=== PATIENT | male | born 1965 | race Caucasian/White ===

== ENCOUNTER 2017-01-01 22:51 | Emergency (ER) | payer SELFPAY ==
--- NOTE | 2017-01-02 00:01 | DIAGNOSTIC IMAGING REPORT ---
PROCEDURE: CT CERVICAL SPINE W/O CONTRAST INDICATION: TRAUMA/INJURY TECHNIQUE: Noncontrast axial images with sagittal and coronal reformations. COMPARISON: None. FINDINGS: There are mild to moderate degenerative changes cervical spine. Osseous structures and disc spaces are otherwise normal. There is a moderate central disc herniation at C5-6 level with 30-40% narrowing of the spinal canal. No evidence of an acute process or fracture. Alignment is normal. IMPRESSION: 1. Moderate degenerative changes. 2. Moderate central disc herniation at C5-6 with 30-40% narrowing of the spinal canal (acute versus chronic). 3. Otherwise negative CT cervical spine. No evidence of fracture. 4. Findings discussed with Dr. Diego Felipe. All CT scans at this facility use dose modulation, iterative reconstruction, and/or weight-based dosing when appropriate to reduce radiation dose to as low as reasonably achievable.
--- NOTE | 2017-01-02 00:01 | DIAGNOSTIC IMAGING REPORT ---
PROCEDURE: CT HEAD WITHOUT CONTRAST INDICATION: TRAUMA/INJURY TECHNIQUE: Noncontrast axial images with sagittal and coronal reformations. COMPARISON: Compared to a head CT on 10/05/2013. FINDINGS: Allowing for mild motion, brain and ventricles are normal. No evidence of an acute process or hemorrhage. Sinuses and mastoids are normal. IMPRESSION: 1. Allowing for motion, negative head CT. 2. Findings discussed with Dr. Diego Felipe at [address] scans at this facility use dose modulation, iterative reconstruction, and/or weight-based dosing when appropriate to reduce radiation dose to as low as reasonably achievable.
--- NOTE | 2017-01-02 04:01 | ED NURSING NOTES ---
Clinical Report - Nurses [place] [address] [place] [address] 01/01/2017 22:52 [id number] Triage time 22:56 Leonel 2016. Acuity: LEVEL 3. Chief Complaint: INJURY TO HEAD. Alert. No acute distress. BARON COMA SCORE: Baron Coma Scale: 15- eyes open spontaneously (4); best verbal response- oriented x 4 (5); best motor response- obeys commands (6). --23:01 Krystin Mcintyre R.N. 22:56 01/01/17. BP: 140/97. HR: 70. RR: 16. O2 saturation: 100%. Temp: 97.7 F. Pain level now: 03/05. --23:01 Krystin Mcintyre R.N. Weight: 90.7 kg stated. Height/Length: 67 inches Per Patient. BMI: 31.3. --22:59 Krystin Mcintyre R.N. Medications Aspirin Oral (Tablet 325 mg) 1 tablet, daily. --22:57 Krystin Mcintyre R.N. Allergies None. --22:58 Krystin Mcintyre R.N. History Arrived by EMS. Historian: patient. This occurred yesterday. Mechanism of injury: (flower pot fell on top of head). He has had a headache and neck pain. ( low back pain). Treatment SHIP LINER: None. PAST MEDICAL HX: Tetanus status: up-to-date. Immunizations: up-to-date. SOCIAL HX: Current every day heavy tobacco smoker (cigarette)- less than 1 pack per day. Regular alcohol use; consumes three beers a day. No drug use. No infectious disease exposure. SELF HARM ASSESSMENT: A self harm assessment was performed. The patient answered "no" to the question "Do you have thoughts of harming or killing yourself?". FALL RISK ASSESSMENT: Fall risk assessment completed. No fall risk identified. NUTRITIONAL RISK ASSESSMENT: The nutritional risk assessment revealed no deficiencies. FUNCTIONAL ASSESSMENT: Functional assessment: no impairments noted. LEARNING NEEDS ASSESSMENT: The learning needs assessment revealed no barriers. ABUSE ASSESSMENT: Abuse assessment: The patient was asked "Do you feel safe in your home?". SKIN INTEGRITY ASSESSMENT: Skin integrity risk assessment completed. No skin integrity risk identified. --23: Krystin Mcintyre R.N. PROBLEMS: Hypomagnesemia. Substance Abuse. Alcohol Intoxication. Hyperlipidemia. Chest Pain. Hypertension. Hypercholesterolemia. --: Krystin Mcintyre R.N. ADDITIONAL SURGERIES: Carpal Tunnel Surgery. Transposition of R ulnar nerve. --:58 Krystin Mcintyre R.N. Interventions ID band on patient. To room. --23: Krystin Mcintyre R.N. PHYSICAL ASSESSMENT GENERAL / NEURO / PSYCH: Alert. Oriented X 4. Appears in no acute distress. HEENT: Vertex: tenderness. Pupils equal, round and reactive to light. Voice within normal limits. RESPIRATORY: Respirations not labored. BACK: Vertebral point tenderness over the thoracic spine. SKIN: Skin is warm and dry. --23:03 Krystin Mcintyre R.N. NURSING PROGRESS NOTES Patient gowned. Head of bed elevated. Patient identifiers checked. Call light placed in reach. Side rails up x 1. Bed placed in lowest position. Brakes of bed on. --23:03 Krystin Mcintyre R.N. Point of care testing: performed by nurse. Glucose: 94. BREATHALYZER: Breathalyzer (.025). --23: Krystin Mcintyre R.N. The patient is resting quietly. RESPIRATORY: No respiratory distress. SKIN: Skin is warm and dry. --23:56 Pillo, Dena 23:55 01/01/17. BP: 139/70. HR: 68. RR: 20. O2 saturation: 98% on room air. Pain level now: 03/05. --23:56 Pillo, Dena The patient is sleeping. --00:49 Pillo, Dena 00:48 01/02/17. BP: 129/60. HR: 88. RR: 20. O2 saturation: 96% on room air. --00:49 Pillo, Dena The patient is sleeping. --02:21 Dena Ferro 01:55 01/02/17. BP: 145/89. HR: 92. RR: 20. O2 saturation: 96% on room air. --02:21 Dena Ferro Patient ID band checked for patient name and birthdate: patient confirmed. Instructions provided to collect clean catch urine and patient verbalized understanding. Clean catch urine collected with return of yellow-colored clear urine; sample sent to lab for urinalysis and drug screen. Specimen labeled in the presence of the patient. --02:50 Dena Ferro 03:22 01/02/17. BP: 140/80. HR: 83. RR: 20. O2 saturation: 95% on room air. --03:25 Dena Ferro ( Provider has cleared patient for discharge, RN attempting to arrange ride for the patient.). --04:30 Dena Ferro late entry -04:25. ( CALLED BROTHER AND LEFT MESSAGE THAT PT IS READY TO GO HOME AND NEEDS SOMEONE TO COME PICK HIM UP). --04:34 Carmela Marcum ( CALLED FRIEND: RADHA, NO ANSWER COULD NOT LEAVE MESSAGE.). --04:35 Carmela Marcum ( CALLED OTHER NUMBER FOR RADHA AND LEFT A MESSAGE). --04:37 Carmela Marcum ( TRIED TO CALL RADHA AGAIN PHONE WENT STRAIGHT TO VOICEMAIL.). --05:09 Carmela Marcum The patient is resting quietly. RESPIRATORY: No respiratory distress. SKIN: Skin is warm and dry. --05:14 Dena Ferro 05:10 01/02/17. BP: 142/60. HR: 85. RR: 18. O2 saturation: 95%. --05:14 Dena Ferro 06:27 01/02/17. The patient is sleeping. ( Unable to obtain safe ride for patient. Patient family called on multiple attempts.). --06:27 Dena Ferro 06:27 01/02/17. BP: 130/68. HR: 75. RR: 20. O2 saturation: 97% on room air. --06:27 Dena Ferro Care transferred and report received (Dena, RN). --07:18 Kishore Amato R.N. DISPOSITION / DISCHARGE Departure time: 0750. Condition at departure: improved and stable. ( Passed road test without problems.). No learning barriers present. Discharge instructions provided and reviewed with the patient. Patient verbalized understanding. Written instructions provided in Hong Konger. The patient was discharged by the physician. He was discharged home. He left the Emergency Department ambulatory and via bus. --07:51 Kishore Amato R.N. 07:48 01/02/17. BP: 140/87. HR: 67. RR: 16. O2 saturation: 96% on room air. Temp: 98.1 F. Pain level now: 0/10. --07:51 Kishore Amato R.N. Locked/Released at 01/02/2017 17:48 by Kishore Amato R.N.
--- NOTE | 2017-01-02 04:01 | ED CLINICAL REPORT ---
Clinical Report - Physicians/Mid Levels [facility] [address] [place] [address] 01/01/2017 22:52 Patient: COLLINS MORENO JR Time Seen: 22:52. Arrived- By ambulance. Historian- patient and EMS personnel. Evaluation limited No family will answer phone, no family present, Patient has decreased alertness. HISTORY OF PRESENT ILLNESS Chief Complaint: DECREASED MENTAL STATUS, CHANGED MENTAL STATUS and CONFUSION. The patient is described as having decreased responsiveness. (Family (Not present in ED) is said to be concerned about decreased mental status.There was a history of head trauma yesterday. He dropped a flat of plants onto his head from an unknown height. He is not on anti-coagulants.). This started today. The patient has had alcohol consumption recently (unknown from history). History of recent drug use unknown from history. No weakness or recent fall. No difficulty walking. Usually is alert and oriented X3 and usually has normal mobility. Similar symptoms previously: (Unknown). Recent medical care: The patient was seen recently by a health care provider (Unknown). REVIEW OF SYSTEMS The patient has had a headache. No chest pain or abdominal pain. Neck and back pain. PAST HISTORY ( PCP: None Ops: Elbow and hand surgery. Hosp: Abdominal pain Hypertension. SURGERIES: Anterior intermuscular transposition, right ulnar nerve for cubital tunnel syndrome - done by Dr. Oliver [id number] Carpal tunnel PCP: Zay ([facility]). Hyperlipidemia. Medications: None.. Allergies: No Known Drug Allergy..). ADDITIONAL NOTES The nursing notes have been reviewed. PHYSICAL EXAM Vital Signs: 01/02/2017 07:48 BP: 140/87. HR: 67. RR: 16. O2 saturation: 96%. Temp: 98.1 F. Pain level now: 0/10. 01/02/2017 06:27 BP: 130/68. HR: 75. RR: 20. O2 saturation: 97%. 01/02/2017 05:10 BP: 142/60. HR: 85. RR: 18. O2 saturation: 95%. 01/02/2017 03:22 BP: 140/80. HR: 83. RR: 20. O2 saturation: 95%. 01/02/2017 01:55 BP: 145/89. HR: 92. RR: 20. O2 saturation: 96%. 01/02/2017 00:48 BP: 129/60. HR: 88. RR: 20. O2 saturation: 96%. 01/01/2017 23:55 BP: 139/70. HR: 68. RR: 20. O2 saturation: 98%. Pain level now: 03/05. 01/01/2017 22:56 BP: 140/97. HR: 70. RR: 16. O2 saturation: 100%. Temp: 97.7 F. Pain level now: 03/05. Appearance: Alert. No acute distress. Head: Head atraumatic. Eyes: Nystagmus (difficult to assess). ENT: Normal ENT inspection. Moist mucous membranes. Neck: Normal inspection. (Mild cervical tenderness). CVS: Normal heart rate and rhythm. Respiratory: No respiratory distress. Abdomen: Soft and nontender. Skin: Skin warm. Normal skin color. Extremities: Extremities exhibit normal ROM. No lower extremity edema. Neuro: Oriented X 3. Altered mental status. (wakens to mild vocal stimuli). Mood/affect normal. Speech normal. No cranial nerve deficit. No motor deficit. No sensory deficit. Abnormal gait (slightly unsteady initially). LABS, X-RAYS, AND EKG CT C-Spine: (PROCEDURE: CT CERVICAL SPINE W/O CONTRAST INDICATION: TRAUMA/INJURY TECHNIQUE: Noncontrast axial images with sagittal and coronal reformations. COMPARISON: None. FINDINGS: There are mild to moderate degenerative changes cervical spine. Osseous structures and disc spaces are otherwise normal. There is a moderate central disc herniation at C5-6 level with 30-40% narrowing of the spinal canal. No evidence of an acute process or fracture. Alignment is normal. IMPRESSION: 1. Moderate degenerative changes. 2. Moderate central disc herniation at C5-6 with 30-40% narrowing of the spinal canal (acute versus chronic). 3. Otherwise negative CT cervical spine. No evidence of fracture. 4. Findings discussed with Dr. Diego Felipe. All CT scans at this facility use dose modulation, iterative reconstruction, and/or weight-based dosing when appropriate to reduce radiation dose to as low as reasonably achievable. Electronically Final signed by:Dani King MD 01/01/2017 11:56:18 PM). CT Head: (PROCEDURE: CT HEAD WITHOUT CONTRAST INDICATION: TRAUMA/INJURY TECHNIQUE: Noncontrast axial images with sagittal and coronal reformations. COMPARISON: Compared to a head CT on 10/05/2013. FINDINGS: Allowing for mild motion, brain and ventricles are normal. No evidence of an acute process or hemorrhage. Sinuses and mastoids are normal. IMPRESSION: 1. Allowing for motion, negative head CT. 2. Findings discussed with Dr. Diego Felipe at [address] scans at this facility use dose modulation, iterative reconstruction, and/or weight-based dosing when appropriate to reduce radiation dose to as low as reasonably achievable. Electronically Final signed by:Dani King MD 01/01/2017 11:57:03 PM). Laboratory Tests: Ethyl Alcohol: (MELINDA: 01/02/2017 00:00) ( [facility] 01/02/2017 03:06) Final results Test Result Flag Units (Reference) ETHYL ALCOHOL 24 H mg/dL (3-10) Urine Drug Screen: (MELINDA: 01/02/2017 02:50) ( [facility] 01/02/2017 03:11) Final results Test Result Flag Units (Reference) AMPHETAMINE/METHAMPHETAMINE POSITIVE H (NEGATIVE) BARBITURATE NEGATIVE (NEGATIVE) BENZODIAZEPINE POSITIVE H (NEGATIVE) CANNABINOID NEGATIVE (NEGATIVE) COCAINE NEGATIVE (NEGATIVE) ECSTASY NEGATIVE (NEGATIVE) METHADONE NEGATIVE (NEGATIVE) OPIATE POSITIVE H (NEGATIVE) The urine drug screen is a qualitative screening test fordrug overdose and abuse. All screen results should beconsidered as presumptive.Drugs screened for are as follows:BenzodiazepinesCocaineAmphetamines/MetamphetaminesTHC (Tetrahydrocannabinol)OpiatesBarbituratesEcstasyMethadonePositive results are unconfirmed. For confirmation, notifythe lab for the specimen to be sent to the reference lab.All confirmations must be performed by a differentmethodology.The ingestion of natural herbal and plant productscontaining Ephedra/Ephedra metabolites can produce in urineone or more substances capable of cross reacting withamphetamine/methamphetamine immunoassays. These testsprovide a preliminary result only. A more specificalternative chemical method must be used to obtain aconfirmed analytical result. CBC w Diff: (MELINDA: 01/01/2017 23:33) ( [facility] 01/02/2017 00:11) Final results Test Result Flag Units (Reference) WHITE BLOOD COUNT 5.0 K/uL (4.5-11.5) RED BLOOD COUNT 4.88 M/uL (4.50-5.90) HEMOGLOBIN 15.3 gm/dL (13.5-17.5) HEMATOCRIT 44.9 % (41.0-53.0) MEAN CELL VOLUME 92 fL (80-100) MEAN CORPUSCULAR HGB 31 pg (26-34) MEAN CORPUSCULAR HGB CONC 34 g/dL (31-37) RED CELL DISTRIBUTION WIDTH 14.0 % (11.6-14.8) PLATELET COUNT 127 L K/uL (150-400) NEUTROPHIL % 55.3 % (50-75) LYMPH % 29.5 % (25-40) MONO % 10.7 % (3-14) EOSINOPHIL % 3.9 % (0-4) BASOPHIL % 0.6 % (0-2) CMP: (MELINDA: 01/01/2017 23:33) ( MsgRcvd 01/02/2017 00:06) Final results Test Result Flag Units (Reference) GLUCOSE 101 mg/dL (70-110) BUN 8 mg/dL (7-18) CREATININE 1.0 mg/dL (0.6-1.3) Estimated GFR >60 mL/min Estimated GFR- >60 mL/min Note: Persistent reduction over 3 months in eGFR<60 mL/min/1.73 m2 defines CKD. Patients with eGFR values>=60 mL/min/1.73 m2 may also have CKD if evidence ofpersistent proteinuria. Additional information may be foundat www.kidney.org. SODIUM 143 mmol/L (136-145) POTASSIUM 3.3 L mmol/L (3.5-5.1) CHLORIDE 107 mmol/L (98-107) CARBON DIOXIDE 25 mmol/L (21-32) CALCIUM 9.2 mg/dL (8.5-10.1) TOTAL PROTEIN 7.5 g/dL (6.4-8.2) ALBUMIN 3.2 L g/dL (3.3-5.0) BILIRUBIN, TOTAL 0.4 mg/dL (0.0-1.0) ALKALINE PHOSPHATASE 62 U/L (46-116) AST (SGOT) 45 H U/L (15-37) ALT (SGPT) 53 U/L (12-78) . PROGRESS AND PROCEDURES Course of Care: 03:29 01/02/17. The patient's urine toxicology screen is positive for multiple substances which would explain his altered mental status. He can go home to the care of a sober family member. 07:36 01/02/17. Repeated attempts to find family members willing to take the patient home failed. No one answered the phone. He is now ambulatory. He walks rapidly, smoothly and is alert and appropriate. Disposition: Discharged. Condition: stable. CLINICAL IMPRESSION Substance dependence problems: dependence on opiates and methamphetamine. C6 Cervical disk. INSTRUCTIONS (YOUR SLEEPINESS IS DUE TO MULTIPLE MEDICATIONS INCLUDING METHAMPHETAMINE, OPIATES AND BENZODIAZEPINES YOUR BRAIN CT SCAN IS NORMAL. YOUR NECK CT SCAN SHOWS AN OLD DISC INJURY AT THE SIXTH CERVICAL VERTEBRA. THIS IS SEVERE ENOUGH THAT IT MAY BE CAUSING YOU PROBLEMS ASK YOUR DOCTOR ABOUT THIS. YOU NEED A PRIMARY CARE DR.). Follow-up with: [facility], , , [address], [facility], [id number] (Electronically signed by Diego Felipe MD 01/05/2017 15:55)
--- NOTE | 2017-01-02 04:01 | ED ORDER SUMMARY ---
..... Patient: COLLINS MORENO JR OrderSheet [facility] VisitID: [id number] [place] [address] 51y, M Registration Date/Time: 01/01/2017 ORDER SHEET Weight: 90.7 kg (stated) Allergies: None GENERAL ORDERS: POC Glucose (22:59 01/01/2017 [place] ORELLANA) (23:22 HSoule) POC Breathalyzer (:01/01/2017 [place] ORELLANA) (23:22 HSoule) CT Head wo Cont Urgent (22:59 01/01/2017 [place] ORELLANA) (Ack 23:03 LMuller) (23:46 MCampbell) CT Cervical Spine wo Cont Urgent (22:01/01/2017 [place] ORELLANA) (Ack 23:03 LMuller) (23:46 MCampbell) CBC w Diff Urgent (22:59 01/01/2017 [place] ORELLANA) (Ack 23:03 LMuller) (0:34 HSoule) CMP Urgent (22:59 01/01/2017 [place] ORELLANA) (Ack 23:03 LMuller) (0:34 HSoule) Urine Drug Screen Urgent (02:44 01/02/2017 [place] ORELLANA) (Ack 2:47 LMuller) (3:26 LMuller) Ethyl Alcohol Urgent (02:49 01/02/2017 [place] ORELLANA) (Ack 2:52 LMuller) (3:26 LMuller) MEDICATION ORDERS: IV FLUIDS: ORDER SHEET NOTES: [Electronically signed by Kishore Amato R.N. (17:48 01/02/2017)] [Electronically signed by Diego Felipe MD (15:55 01/05/2017)] [Electronically locked/signed by Kishore Amato R.N. (17:48 01/02/2017)]
--- NOTE | 2017-01-02 04:01 | ED CLINICAL REPORT ---
Clinical Report - Physicians/Mid Levels [facility] [address] [place] [address] 01/01/2017 22:52 Patient: COLLINS MORENO JR Time Seen: 22:52. Arrived- By ambulance. Historian- patient and EMS personnel. Evaluation limited No family will answer phone, no family present, Patient has decreased alertness. HISTORY OF PRESENT ILLNESS Chief Complaint: DECREASED MENTAL STATUS, CHANGED MENTAL STATUS and CONFUSION. The patient is described as having decreased responsiveness. (Family (Not present in ED) is said to be concerned about decreased mental status.There was a history of head trauma yesterday. He dropped a flat of plants onto his head from an unknown height. He is not on anti-coagulants.). This started today. The patient has had alcohol consumption recently (unknown from history). History of recent drug use unknown from history. No weakness or recent fall. No difficulty walking. Usually is alert and oriented X3 and usually has normal mobility. Similar symptoms previously: (Unknown). Recent medical care: The patient was seen recently by a health care provider (Unknown). REVIEW OF SYSTEMS The patient has had a headache. No chest pain or abdominal pain. Neck and back pain. PAST HISTORY ( PCP: None Ops: Elbow and hand surgery. Hosp: Abdominal pain Hypertension. SURGERIES: Anterior intermuscular transposition, right ulnar nerve for cubital tunnel syndrome - done by Dr. Oliver [id number] Carpal tunnel PCP: Zay ([facility] [place]). Hyperlipidemia. Medications: None.. Allergies: No Known Drug Allergy..). ADDITIONAL NOTES The nursing notes have been reviewed. PHYSICAL EXAM Vital Signs: 01/02/2017 07:48 BP: 140/87. HR: 67. RR: 16. O2 saturation: 96%. Temp: 98.1 F. Pain level now: 0/10. 01/02/2017 06:27 BP: 130/68. HR: 75. RR: 20. O2 saturation: 97%. 01/02/2017 05:10 BP: 142/60. HR: 85. RR: 18. O2 saturation: 95%. 01/02/2017 03:22 BP: 140/80. HR: 83. RR: 20. O2 saturation: 95%. 01/02/2017 01:55 BP: 145/89. HR: 92. RR: 20. O2 saturation: 96%. 01/02/2017 00:48 BP: 129/60. HR: 88. RR: 20. O2 saturation: 96%. 01/01/2017 23:55 BP: 139/70. HR: 68. RR: 20. O2 saturation: 98%. Pain level now: 03/05. 01/01/2017 22:56 BP: 140/97. HR: 70. RR: 16. O2 saturation: 100%. Temp: 97.7 F. Pain level now: 03/05. Appearance: Alert. No acute distress. Head: Head atraumatic. Eyes: Nystagmus (difficult to assess). ENT: Normal ENT inspection. Moist mucous membranes. Neck: Normal inspection. (Mild cervical tenderness). CVS: Normal heart rate and rhythm. Respiratory: No respiratory distress. Abdomen: Soft and nontender. Skin: Skin warm. Normal skin color. Extremities: Extremities exhibit normal ROM. No lower extremity edema. Neuro: Oriented X 3. Altered mental status. (wakens to mild vocal stimuli). Mood/affect normal. Speech normal. No cranial nerve deficit. No motor deficit. No sensory deficit. Abnormal gait (slightly unsteady initially). LABS, X-RAYS, AND EKG CT C-Spine: (PROCEDURE: CT CERVICAL SPINE W/O CONTRAST INDICATION: TRAUMA/INJURY TECHNIQUE: Noncontrast axial images with sagittal and coronal reformations. COMPARISON: None. FINDINGS: There are mild to moderate degenerative changes cervical spine. Osseous structures and disc spaces are otherwise normal. There is a moderate central disc herniation at C5-6 level with 30-40% narrowing of the spinal canal. No evidence of an acute process or fracture. Alignment is normal. IMPRESSION: 1. Moderate degenerative changes. 2. Moderate central disc herniation at C5-6 with 30-40% narrowing of the spinal canal (acute versus chronic). 3. Otherwise negative CT cervical spine. No evidence of fracture. 4. Findings discussed with Dr. Diego Felipe. All CT scans at this facility use dose modulation, iterative reconstruction, and/or weight-based dosing when appropriate to reduce radiation dose to as low as reasonably achievable. Electronically Final signed by:Dani King MD 01/01/2017 11:56:18 PM). CT Head: (PROCEDURE: CT HEAD WITHOUT CONTRAST INDICATION: TRAUMA/INJURY TECHNIQUE: Noncontrast axial images with sagittal and coronal reformations. COMPARISON: Compared to a head CT on 10/05/2013. FINDINGS: Allowing for mild motion, brain and ventricles are normal. No evidence of an acute process or hemorrhage. Sinuses and mastoids are normal. IMPRESSION: 1. Allowing for motion, negative head CT. 2. Findings discussed with Dr. Diego Felipe at [address] scans at this facility use dose modulation, iterative reconstruction, and/or weight-based dosing when appropriate to reduce radiation dose to as low as reasonably achievable. Electronically Final signed by:Dani King MD 01/01/2017 11:57:03 PM). Laboratory Tests: Ethyl Alcohol: (MELINDA: 01/02/2017 00:00) ( [facility] 01/02/2017 03:06) Final results Test Result Flag Units (Reference) ETHYL ALCOHOL 24 H mg/dL (3-10) Urine Drug Screen: (MELINDA: 01/02/2017 02:50) ( [facility] 01/02/2017 03:11) Final results Test Result Flag Units (Reference) AMPHETAMINE/METHAMPHETAMINE POSITIVE H (NEGATIVE) BARBITURATE NEGATIVE (NEGATIVE) BENZODIAZEPINE POSITIVE H (NEGATIVE) CANNABINOID NEGATIVE (NEGATIVE) COCAINE NEGATIVE (NEGATIVE) ECSTASY NEGATIVE (NEGATIVE) METHADONE NEGATIVE (NEGATIVE) OPIATE POSITIVE H (NEGATIVE) The urine drug screen is a qualitative screening test fordrug overdose and abuse. All screen results should beconsidered as presumptive.Drugs screened for are as follows:BenzodiazepinesCocaineAmphetamines/MetamphetaminesTHC (Tetrahydrocannabinol)OpiatesBarbituratesEcstasyMethadonePositive results are unconfirmed. For confirmation, notifythe lab for the specimen to be sent to the reference lab.All confirmations must be performed by a differentmethodology.The ingestion of natural herbal and plant productscontaining Ephedra/Ephedra metabolites can produce in urineone or more substances capable of cross reacting withamphetamine/methamphetamine immunoassays. These testsprovide a preliminary result only. A more specificalternative chemical method must be used to obtain aconfirmed analytical result. CBC w Diff: (MELINDA: 01/01/2017 23:33) ( [facility] 01/02/[facility] 00:11) Final results Test Result Flag Units (Reference) WHITE BLOOD COUNT 5.0 K/uL (4.5-11.5) RED BLOOD COUNT 4.88 M/uL (4.50-5.90) HEMOGLOBIN 15.3 gm/dL (13.5-17.5) HEMATOCRIT 44.9 % (41.0-53.0) MEAN CELL VOLUME 92 fL (80-100) MEAN CORPUSCULAR HGB 31 pg (26-34) MEAN CORPUSCULAR HGB CONC 34 g/dL (31-37) RED CELL DISTRIBUTION WIDTH 14.0 % (11.6-14.8) PLATELET COUNT 127 L K/uL (150-400) NEUTROPHIL % 55.3 % (50-75) LYMPH % 29.5 % (25-40) MONO % 10.7 % (3-14) EOSINOPHIL % 3.9 % (0-4) BASOPHIL % 0.6 % (0-2) CMP: (MELINDA: 01/01/2017 23:33) ( [facility] 01/02/2017 00:06) Final results Test Result Flag Units (Reference) GLUCOSE 101 mg/dL (70-110) BUN 8 mg/dL (7-18) CREATININE 1.0 mg/dL (0.6-1.3) Estimated GFR >60 mL/min Estimated GFR- >60 mL/min Note: Persistent reduction over 3 months in eGFR<60 mL/min/1.73 m2 defines CKD. Patients with eGFR values>=60 mL/min/1.73 m2 may also have CKD if evidence ofpersistent proteinuria. Additional information may be foundat www.kidney.org. SODIUM 143 mmol/L (136-145) POTASSIUM 3.3 L mmol/L (3.5-5.1) CHLORIDE 107 mmol/L (98-107) CARBON DIOXIDE 25 mmol/L (21-32) CALCIUM 9.2 mg/dL (8.5-10.1) TOTAL PROTEIN 7.5 g/dL (6.4-8.2) ALBUMIN 3.2 L g/dL (3.3-5.0) BILIRUBIN, TOTAL 0.4 mg/dL (0.0-1.0) ALKALINE PHOSPHATASE 62 U/L (46-116) AST (SGOT) 45 H U/L (15-37) ALT (SGPT) 53 U/L (12-78) . PROGRESS AND PROCEDURES Course of Care: 03:29 01/02/17. The patient's urine toxicology screen is positive for multiple substances which would explain his altered mental status. He can go home to the care of a sober family member. 07:36 01/02/17. Repeated attempts to find family members willing to take the patient home failed. No one answered the phone. He is now ambulatory. He walks rapidly, smoothly and is alert and appropriate. Disposition: Discharged. Condition: stable. CLINICAL IMPRESSION Substance dependence problems: dependence on opiates and methamphetamine. C6 Cervical disk. INSTRUCTIONS (YOUR SLEEPINESS IS DUE TO MULTIPLE MEDICATIONS INCLUDING METHAMPHETAMINE, OPIATES AND BENZODIAZEPINES YOUR BRAIN CT SCAN IS NORMAL. YOUR NECK CT SCAN SHOWS AN OLD DISC INJURY AT THE SIXTH CERVICAL VERTEBRA. THIS IS SEVERE ENOUGH THAT IT MAY BE CAUSING YOU PROBLEMS ASK YOUR DOCTOR ABOUT THIS. YOU NEED A PRIMARY CARE DR.). Follow-up with: [facility], , , [address], [facility], [id number] (Electronically signed by Diego Felipe MD 01/05/2017 15:55)
--- NOTE | 2017-01-02 04:01 | ED ORDER SUMMARY ---
..... Patient: COLLINS MORENO JR OrderSheet [facility] VisitID: [id number] [place] [address] 51y, M Registration Date/Time: 01/01/2017 ORDER SHEET Weight: 90.7 kg (stated) Allergies: None GENERAL ORDERS: POC Glucose (22:59 01/01/2017 [place] ORELLANA) (23:22 HSoule) POC Breathalyzer (:01/01/2017 [place] ORELLANA) (23:22 HSoule) CT Head wo Cont Urgent (22:59 01/01/2017 [place] ORELLANA) (Ack 23:03 LMuller) (23:46 MCampbell) CT Cervical Spine wo Cont Urgent (22:01/01/2017 [place] ORELLANA) (Ack 23:03 LMuller) (23:46 MCampbell) CBC w Diff Urgent (22:59 01/01/2017 [place] ORELLANA) (Ack 23:03 LMuller) (0:34 HSoule) CMP Urgent (22:59 01/01/2017 [place] ORELLANA) (Ack 23:03 LMuller) (0:34 HSoule) Urine Drug Screen Urgent (02:44 01/02/2017 [place] ORELLANA) (Ack 2:47 LMuller) (3:26 LMuller) Ethyl Alcohol Urgent (02:49 01/02/2017 [place] ORELLANA) (Ack 2:52 LMuller) (3:26 LMuller) MEDICATION ORDERS: IV FLUIDS: ORDER SHEET NOTES: [Electronically signed by Kishore Amato R.N. (17:48 01/02/2017)] [Electronically signed by Diego Felipe MD (15:55 01/05/2017)] [Electronically locked/signed by Kishore Amato R.N. (17:48 01/02/2017)]
--- NOTE | 2017-01-05 15:55 | ED DISCHARGE INSTRUCTIONS ---
Patient: COLLINS MORENO JR General Instructions [facility] VisitID: [id number] [address] [place] [address] 51y, M Registration Date/Time: 01/01/2017 Substance dependence problems: dependence on opiates and methamphetamine. C6 Cervical disk. INSTRUCTIONS (YOUR SLEEPINESS IS DUE TO MULTIPLE MEDICATIONS INCLUDING METHAMPHETAMINE, OPIATES AND BENZODIAZEPINES YOUR BRAIN CT SCAN IS NORMAL. YOUR NECK CT SCAN SHOWS AN OLD DISC INJURY AT THE SIXTH CERVICAL VERTEBRA. THIS IS SEVERE ENOUGH THAT IT MAY BE CAUSING YOU PROBLEMS ASK YOUR DOCTOR ABOUT THIS. YOU NEED A PRIMARY CARE DR.). Follow-up with: [facility], , , [address], [place], [id number] (Electronically signed by Diego Felipe MD 01/05/2017 15:55)
--- NOTE | 2017-01-05 15:55 | ED MED RECONCILIATION SUMMARY ---
Patient: LEI MORENOJAMAICA DE JESUS Medication Reconciliation Report [facility] VisitID: [id number] [address] [place] [address] 51y, M Registration Date/Time: 01/01/2017 Weight: 90.7 kg Height/Length: 67 in. BMI: 31.3 ALLERGIES: None The patient's Home Medications are listed below: THE FOLLOWING MEDICATIONS NEED TO BE RECONCILED: Aspirin Oral (325 mg) 1 tablet, daily The source(s) of the original Home Medication information: Not obtained. The following Medications were given to the patient in the Emergency Department: None. The following Medications were prescribed to the patient: None.
--- NOTE | 2017-01-05 15:55 | ED MAR SUMMARY ---
..... Medication Administration Record [facility] [address] [place], [place] [id number] Patient: COLLINS MORENO Visit ID: [id number] 51y, M Weight: 90.7 kg Height/Length: 67 in BMI: 31.3 ALLERGIES: None
--- NOTE | 2017-01-05 15:55 | ED MED RECONCILIATION SUMMARY ---
Patient: LEI MORENOJAMAICA DE JESUS Medication Reconciliation Report [facility] VisitID: [id number] [address] [place] [address] 51y, M Registration Date/Time: 01/01/2017 Weight: 90.7 kg Height/Length: 67 in. BMI: 31.3 ALLERGIES: None The patient's Home Medications are listed below: THE FOLLOWING MEDICATIONS NEED TO BE RECONCILED: Aspirin Oral (325 mg) 1 tablet, daily The source(s) of the original Home Medication information: Not obtained. The following Medications were given to the patient in the Emergency Department: None. The following Medications were prescribed to the patient: None.
--- NOTE | 2017-01-05 15:55 | ED MAR SUMMARY ---
..... Medication Administration Record [facility] [address] [place], [place] [id number] Patient: COLLINS MORENO Visit ID: [id number] 51y, M Weight: 90.7 kg Height/Length: 67 in BMI: 31.3 ALLERGIES: None
--- NOTE | 2017-01-05 15:55 | ED DISCHARGE INSTRUCTIONS ---
Patient: COLLINS MORENO JR General Instructions [facility] VisitID: [id number] [address] [place] [address] 51y, M Registration Date/Time: 01/01/2017 Substance dependence problems: dependence on opiates and methamphetamine. C6 Cervical disk. INSTRUCTIONS (YOUR SLEEPINESS IS DUE TO MULTIPLE MEDICATIONS INCLUDING METHAMPHETAMINE, OPIATES AND BENZODIAZEPINES YOUR BRAIN CT SCAN IS NORMAL. YOUR NECK CT SCAN SHOWS AN OLD DISC INJURY AT THE SIXTH CERVICAL VERTEBRA. THIS IS SEVERE ENOUGH THAT IT MAY BE CAUSING YOU PROBLEMS ASK YOUR DOCTOR ABOUT THIS. YOU NEED A PRIMARY CARE DR.). Follow-up with: [facility], , , [address], [place] [phone] (Electronically signed by Diego Felipe MD 01/05/2017 15:55)
== END 2017-01-02 07:50 | disposition home or self-care (01) ==
LOC: ED SRH 22:51
DX: F11.20 Opioid dependence, uncomplicated (principal); F15.20 Other stimulant dependence, uncomplicated; M50.222 Other cervical disc displacement at C5-C6 level; R40.0 Somnolence; I10 Essential (primary) hypertension; E78.5 Hyperlipidemia, unspecified
CPT/HCPCS: 90074; 90100; 92010; 92760; 92761; 92762; 92763; 92764; 92765; 92766; 92767; 95059